=== PATIENT | female | born 1955 | race Caucasian/White ===

== ENCOUNTER 2018-07-09 13:37 | Outpatient (CLI) | payer OTHER ==
[2018-07-09] MEDS ORDERED: Iopamidol 370 76% 100 ML VIAL ONE (14:24)
== END 2018-07-09 13:38 | disposition home or self-care (01) ==
LOC: BICCT 13:37
PROVIDERS: ATTEND Internal Medicine Gastroenterology
DX: K59.00 Constipation, unspecified (principal); R10.31 Right lower quadrant pain; K43.9 Ventral hernia without obstruction or gangrene; Z86.010 Personal history of colon polyps
CPT/HCPCS: 74177; 82565

== ENCOUNTER 2018-07-09 17:40 | Observation (INO) | payer OTHER ==
[2018-07-09] MEDS ORDERED: Ondansetron HCl/PF 4 MG/2 ML Vial ONE (18:07)
[2018-07-09 18:17] LABS: Hemoglobin 16.3 g/dL (12.0-16.0); Mean Corpuscular HGB CONC 34.9 g/dL (32.0-36.0); Mean Corpuscular Hemoglobin 32.9 pg (27.0-31.0); Mean Corpuscular Volume 94.2 fL (78.0-98.0); Mean Platelet Volume 6.4 fL (7.4-10.4); Platelet Count 349 thou/uL (130-400); RBC Distribution Width 11.8 % (11.5-14.5); Red Blood Cell (RBC) Count 4.96 mill/uL (4.20-5.40); White Blood Cell (WBC) Count 10.7 thou/uL (4.8-10.8)
[2018-07-09 18:33] LABS: Eosinophils 5 % (0-10); Lymphocytes 40 % (21-51); MDiff Complete? YES; Monocytes 5 % (0-10); Neutrophil 49 % (42-75); PLT Morphology Comment Appears Adequate; RBC Morphology Normal
[2018-07-09 18:43] LABS: ALT (SGPT) 25 U/L (8-55); AST (SGOT) 32 U/L (5-34); Albumin 4.6 g/dL (3.4-4.8); Alkaline Phosphatase 82 U/L (40-150); Anion Gap 24 mmol/L (10-20); BUN (Urea Nitrogen) 9 mg/dL (9.8-20.1); Bilirubin, Total 0.6 mg/dL (0.2-1.2); Calc. Creatinine Clearance 0 mL/min (70-130); Calcium 10.3 mg/dL (7.8-10.44); Carbon Dioxide 21 mmol/L (23-31); Chloride 92 mmol/L (98-107); Estimated GFR-MDRD 53; Globulin 4.1 g/dL (2.4-3.5); Glucose 231 mg/dL (80-115); Lipase 24 U/L (8-78); Potassium 3.9 mmol/L (3.5-5.1); Protein, Total 8.7 g/dL (6.0-8.3); Sodium 133 mmol/L (136-145)
[2018-07-09 18:48] LABS: CKMB 0.7 ng/mL (0-6.6); Troponin I Less than 0.010 ng/mL (< 0.028)
--- NOTE | 2018-07-09 19:12 | RAD ---
ACUTE ABDOMINAL SERIES: 07/09/18 HISTORY: Chest pain and abdominal pain which has worsened over the past two hours. CHEST X-RAY: Compared to study on 03/09/13. The cardiac silhouette and pulmonary vasculature are within normal limits. Lungs are clear. Mild dege nerative changes seen in the spine with mild right convexed curvature of the thoracic spine. Minimal vascular calcifications seen in the thoracic aorta. No free intraperitoneal air is seen beneath the h emidiaphragms. UPRIGHT AND SUPINE VIEWS OF THE ABDOMEN: There is residual contrast seen within the colon as well as in the renal collecting systems and urina ry bladder related to recent contrasted exam. This does limit evaluation of the abdomen, but the mackenzie l gas pattern is overall nonspecific. Suspicious calcifications could be easily obscured by retention of contrast, no obvious suspicious calcifications are seen. Mild degenerative changes seen in the sp ine. There are postsurgical changes at the L4-5 level related to posterior fusion with intradiscal pr osthesis present. Postsurgical changes related to left total hip prosthesis are noted. IMPRESSION: 1. Nonspecific bowel gas pattern. 2. Contrast in the renal collecting systems, urinary bladder, as well as the colon related to re cent contrasted exam. POS: AROLDO
[2018-07-09 22:02] LABS: Lactic Acid 1.7 mmol/L (0.5-2.2)
[2018-07-09 23:11] LABS: Lactic Acid 1.6 mmol/L (0.5-2.2)
[2018-07-10 00:43] VITALS: BMI 35.9
[2018-07-10 06:02] LABS: #Basophils 0.1 thou/uL (0.0-0.2); #Eosinphils 0.3 thou/uL (0.0-0.7); #Lymphocytes 2.7 thou/uL (1.20-3.40); #Monocytes 0.9 thou/uL (0.11-0.59); %Basophils 1.6 % (0.0-1.0); %Eosinophils 2.9 % (0.0-10.0); %Lymphocytes 29.7 % (21.0-51.0); %Monocytes 9.6 % (0.0-10.0); %Neutrophils 56.1 % (42.0-75.0); Hemoglobin 14.2 g/dL (12.0-16.0); Mean Corpuscular Hemoglobin 32.4 pg (27.0-31.0); Mean Corpuscular Volume 95.4 fL (78.0-98.0); Mean Platelet Volume 6.1 fL (7.4-10.4); Platelet Count 314 thou/uL (130-400); RBC Distribution Width 11.8 % (11.5-14.5); Red Blood Cell (RBC) Count 4.39 mill/uL (4.20-5.40)
[2018-07-10 06:10] LABS: Lactic Acid 0.9 mmol/L (0.5-2.2)
[2018-07-10 06:14] LABS: ALT (SGPT) 19 U/L (8-55); AST (SGOT) 19 U/L (5-34); Albumin 3.8 g/dL (3.4-4.8); Alkaline Phosphatase 60 U/L (40-150); Anion Gap 9 mmol/L (10-20); BUN (Urea Nitrogen) 8 mg/dL (9.8-20.1); Bilirubin, Total 0.5 mg/dL (0.2-1.2); Calc. Creatinine Clearance 116 mL/min (70-130); Carbon Dioxide 31 mmol/L (23-31); Chloride 102 mmol/L (98-107); Estimated GFR-MDRD 83; Glucose 161 mg/dL (80-115); Potassium 3.7 mmol/L (3.5-5.1); Protein, Total 6.8 g/dL (6.0-8.3); Sodium 138 mmol/L (136-145)
[2018-07-10] MEDS: Sodium Chloride 0.45% 1,000 ML IV SCH ×2 (06:42)
[2018-07-10] MEDS ORDERED: Lactated Ringer's 1,000 ML IV SCH (08:00)
[2018-07-10] MEDS ORDERED: traMADol HCl 50 MG TAB PO PRN ×2 (11:02)
--- NOTE | 2018-07-10 11:13 | SS ---
CHIEF COMPLAINT: Incisional hernia. HISTORY OF PRESENT ILLNESS: This is a 63-year-old female who had left colectomy for chronic divertic ulitis by me in 2012. Her postop course was uneventful. She has now had similar kind of symptoms ov er the course of the last few weeks. She had seen Dr. Lucero. She was having some pain to the right of her umbilicus. He ordered a CAT scan as an outpatient which showed an incisional hernia. She the n proceeded to have more severe pain and vomited, seen in emergency room where her hernia was reduced . She was admitted overnight due to elevated lactate. Her lactate is normal now. This morning her pain is resolved. No nausea, vomiting. No abdominal distention. She is passing gas. PAST MEDICAL HISTORY: Diabetes mellitus type 2, hypertension. PAST SURGICAL HISTORY: As above. MEDICINES: Venlafaxine, unknown diabetic medicine. ALLERGIES: No known drug allergies. SOCIAL HISTORY: No smoking, alcohol or drugs. REVIEW OF SYSTEMS: Ten system review of systems otherwise negative unless described above. PHYSICAL EXAMINATION: HEENT: Sclerae are anicteric. Oropharynx clear. NECK: No lymphadenopathy. LUNGS: Clear. HEART: Regular rate and rhythm. ABDOMEN: Soft, minimally tender near the umbilicus, reducible incisional hernia. Well-healed midlin e incision. EXTREMITIES: No ischemia or edema to extremities. LABORATORY: White blood cell count is 9, hemoglobin 14, platelet count is 314. Sodium 138, potassiu m 3.7, creatinine 0.71. Lactate resolved at 0.9. ASSESSMENT: Incisional hernia. PLAN: I had a long discussion about treatment of incisional hernia. I would prefer a robotic incisi onal hernia repair with mesh. I think in her case, lower recurrence rate less postop pain; however, we are not going to be able to do that over the weekend, so my plan is to let her eat, get her home, bring her back in the next week or so for that repair. She understands and agrees with the plan.
[2018-07-10 15:46] VITALS: BP 153/84; TEMP 98.2
== END 2018-07-10 16:00 | disposition home or self-care (01) ==
LOC: ERS 17:40 → SURG B 21:09
PROVIDERS: ADMIT Specialist; ATTEND Specialist
DX: K43.2 Incisional hernia without obstruction or gangrene (principal); I10 Essential (primary) hypertension; E11.9 Type 2 diabetes mellitus without complications; Z79.899 Other long term (current) drug therapy
CPT/HCPCS: 36415; 36416; 74022; 74177; 80053; 82553; 82565; 83605; 83690; 84484; 85025; 96361; 96374; 96375; 96376; A4216; G0378; J2270; J2405

== ENCOUNTER 2018-07-15 11:23 | Day surgery (SDC) | payer OTHER ==
[2018-07-14 13:32] VITALS: BMI 35.4
[2018-07-15] MEDS ORDERED: Bupivacaine/Epinephrine 0.25% 30 ML VIAL ONE (12:32)
[2018-07-15] MEDS ORDERED: CEFAZOLIN/Water 2 GM/20 ML SYRINGE ONE (12:39)
[2018-07-15] MEDS ORDERED: Fentanyl 250 MCG/5 ML VIAL ONE (13:05)
[2018-07-15] MEDS ORDERED: Ondansetron HCl/PF 4 MG/2 ML Vial ONE (14:24)
[2018-07-15] MEDS ORDERED: Ketorolac Tromethamine 30 MG/ML VIAL ONE (14:24)
[2018-07-15] MEDS ORDERED: PHENYLEPHRINE-NS 100 MCG/ML 10 ML SYRINGE ONE (14:24)
[2018-07-15] MEDS ORDERED: Labetalol HCl 100 MG/20 ML VIAL ONE (14:24)
[2018-07-15] MEDS ORDERED: Esmolol 100 MG/10 ML VIAL ONE (14:24)
[2018-07-15] MEDS ORDERED: Glycopyrrolate 0.2 MG/ML 5 ML SYRINGE ONE (14:24)
[2018-07-15] MEDS ORDERED: PROPOFOL 200 MG/20 ML VIAL ONE (14:24)
[2018-07-15] MEDS ORDERED: Fentanyl 100 MCG/2 ML VIAL ONE ×3 (15:57→16:32)
[2018-07-15] MEDS ORDERED: HYDROcodone/Acetaminophen 5/325 mg Tablet ONE (17:35)
--- NOTE | 2018-07-16 15:12 | OP ---
DATE OF PROCEDURE: 07/15/2018 PREOPERATIVE DIAGNOSIS: Incisional hernia. POSTOPERATIVE DIAGNOSIS: Incisional hernia. PROCEDURE: Laparoscopic da Bianka robot incisional hernia repair with 2 pieces of mesh placed, [address] and 5 x [address] FINDINGS: Multiple fascial defects of the previous midline incision. TECHNIQUE: The patient was taken to the operating room and placed supine on the table. After genera l anesthetic was obtained, a Ley was placed. The abdomen is prepped and draped in a sterile fashio n. Left subcostal 5-mm Optiview trocar was placed in usual fashion. High-flow pneumoperitoneum was obtained. Left and right abdominal 8 mm robot ports were placed along the costal margin laterally on each side. A 5 mm subcostal port switched out to an 11 mm balloon trocar. All ports are docked to the robot. Surgeon goes to the console. Multiple adhesions were taken out from posterior abdominal wall. The patient is found to have intestine in the known defect just above the umbilicus. She also has multiple defects all the way up and down of the previous midline incision. All adhesions were t aken down. #1 V-Loc was brought into the abdomen and used to close the fascial defect primarily runn ing from the most distal aspects proximally. The fascial defects were all closed under minimal tensi on. A 4 x 10 cm piece of mesh was brought into the sterile field, placed in the abdominal cavity and used to cover the lower incision. This is sewn to the posterior peritoneum and fascia using a runni ng 2-0 V-Loc. A second piece was placed up top to cover the most superior aspect and sewn in place u sing a V-Loc as well. All needles were removed from the abdomen and accounted for. There was no dam age to any intraabdominal structures. There is no bleeding. All port sites were infiltrated using l ocal anesthetic. All ports were removed under camera visualization and pneumoperitoneum was let down . The incisions are closed using 4-0 Monocryl and Dermabond. The patient enroute to recovery room i n stable condition. All sponge counts, needle counts, lap counts were correct.
== END 2018-07-15 19:30 | disposition home or self-care (01) ==
LOC: SDC 11:23
PROVIDERS: ATTEND Surgery
PROC: 0WUF4JZ Supplement Abdominal Wall with Synthetic Substitute, Percutaneous Endoscopic Approach (ICD-10-PCS; principal; 2018-07-15)
DX: K43.2 Incisional hernia without obstruction or gangrene (principal); E11.9 Type 2 diabetes mellitus without complications; I10 Essential (primary) hypertension; Z79.899 Other long term (current) drug therapy
CPT/HCPCS: 96374; C1781; J0131; J1885; J2405; J2704; J3010

== ENCOUNTER 2018-09-29 15:25 | Outpatient (CLI) | payer OTHER | END 2018-09-29 15:26 | disposition home or self-care (01) | LOC: BICMAMMO 15:25 | PROVIDERS: ATTEND Student in an Organized Health Care Education/Training Program | DX: Z12.31 Encounter for screening mammogram for malignant neoplasm of breast (principal); Z80.3 Family history of malignant neoplasm of breast | CPT/HCPCS: 77063; 77067 ==

== ENCOUNTER 2019-03-10 12:38 | Inpatient (IN) | payer OTHER ==
[2019-03-10] MEDS ORDERED: Fentanyl 100 MCG/2 ML VIAL ONE ×4 (13:44→18:40)
[2019-03-10] MEDS ORDERED: Midazolam HCl 2 mg/2 ml Vial ONE (14:14)
[2019-03-10] MEDS ORDERED: Bupivacaine/Epinephrine 0.25% 30 ML VIAL ONE (14:21)
--- NOTE | 2019-03-10 14:25 | HP ---
HISTORY OF PRESENT ILLNESS: Ms. Regan is a 64-year-old morbidly obese woman, who was [facility] earlier today. The patient presented with insidious onset abdominal pain, which she states it started approximately 36 hours ago. The pain intensified last night and has localized to the right lower quadrant. Pain is described as sharp, associated with multiple episodes of nonbilious emesis. She admitted some chills this morning. She thought she might have fever, although she did not record her temperature. PAST MEDICAL HISTORY: Pertinent for chronic depression, morbid obesity, degenerative arthritic disease, previous ventral incisional hernia, and diverticulosis coli. PAST SURGICAL HISTORY: Significant for partial colectomy with primary anastomosis 4 years ago, she is status post ventral incisional herniorrhaphy in July of 2018. She also admits to left total hip arthroplasty as well as back surgery, she does not recall the levels. SOCIAL HISTORY: She is , lives at home with her . She admits to occasional intake of ethanol in moderate amounts. She denies any cigarette smoking or illicit drug abuse. FAMILY HISTORY: Noncontributory for this patient's age. PREHOSPITALIZATION MEDICATIONS: Includes, 1. Venlafaxine 150 mg p.o. q.a.m. 2. Aspirin 81 mg p.o. daily. 3. Multiple vitamins and some fish oil. ALLERGIES: THE PATIENT DENIES ANY KNOWN DRUG ALLERGIES. REVIEW OF SYSTEMS: Ten-point review of systems essentially unremarkable, except as stated in past medical history and chief complaint. PHYSICAL EXAMINATION: GENERAL: This reveals a 64-year-old normally developed woman, who is otherwise coherent, interactive, and appears stated age. The patient is alert and oriented x3. She appears to be in no acute distress at time of my evaluation. VITAL SIGNS: Include blood pressure is 198/102, pulse is 98, respiratory rate is 16, temperature is 98.3 degrees Fahrenheit, oxygen saturation is 94% on room air. HEENT: Reveals normocephalic and atraumatic. Pupils are equal, round, reactive to light and accommodation. His extraocular muscles are intact bilaterally. No scleral icterus is present. HEART: Reveals regular rate and rhythm. No murmurs or gallops auscultated. LUNGS: Clear to auscultation bilaterally. Breathing, regular and nonlabored. ABDOMEN: Soft and obese. She has right lower quadrant tenderness to palpation. She has a positive Rovsing sign. Liver and spleen otherwise nonpalpable below costal margin. NEUROLOGIC: Reveals no focal deficits present. LABORATORY STUDIES: Accompanying laboratory studies from [facility] includes a CBC with 14,600 white blood cells, hemoglobin and hematocrit 16.2 and 47.7 respectively. Platelet count is 278,000. Metabolic profile; sodium is 136, potassium of 4.3, chloride is 94, BUN is 12, creatinine is 0.5, glucose is 353. ALT and AST noted at 23 and 37 respectively. I have personally reviewed the accompanying CT scan of the abdomen and pelvis, which is remarkable for dilated fluid-filled appendix with periappendiceal fat-stranding and free intraperitoneal fluid. There is no pneumoperitoneum noted. IMPRESSIONS: 1. Acute appendicitis. 2. Morbid obesity. RECOMMENDATION: 1. Laparoscopic appendectomy. 2. I have advised the patient of the above findings and recommendations. 3. Also, I informed her of the risks and benefits of the proposed surgery to include, but not limited to bleeding, infection, injury to bowel or surrounding structures. I did tell the patient that given a previous history of a ventral incisional herniorrhaphy with mesh that she faces additional risk for infection, especially if the appendix had already ruptured. This information was given to the patient in the presence of her at bedside. They both indicated understanding of information given. I have answered their questions. The patient has granted consent for this admission and surgical intervention. Job ID: [id number]
[2019-03-10] MEDS ORDERED: HYDROmorphone 2 MG/ML VIAL ONE (16:06)
[2019-03-10] MEDS ORDERED: Glycopyrrolate 0.2 MG/ML 5 ML SYRINGE ONE (16:31)
[2019-03-10] MEDS ORDERED: Ondansetron PF 4 MG/2 ML Vial ONE (16:31)
[2019-03-10] MEDS ORDERED: ePHEDrine 50 MG/ML VIAL ONE (16:31)
[2019-03-10] MEDS ORDERED: PHENYLEPHRINE-NS 100 MCG/ML 10 ML SYRINGE ONE (16:31)
[2019-03-10] MEDS ORDERED: Rocuronium Bromide 10 MG/ML (10ML VIAL) ONE (16:31)
[2019-03-10] MEDS ORDERED: Lidocaine 1% PF 5 ML VIAL ONE (16:31)
[2019-03-10] MEDS ORDERED: PROPOFOL 200 MG/20 ML VIAL ONE (16:31)
[2019-03-10] MEDS ORDERED: Succinylcholine Chloride 20 MG/ML 10 ml SYRINGE FS ONE (16:31)
[2019-03-10] MEDS ORDERED: Dexamethasone 20 MG/5 ML VIAL ONE (16:31)
[2019-03-10] MEDS ORDERED: Labetalol HCl 100 MG/20 ML VIAL ONE (17:19)
[2019-03-10] MEDS ORDERED: Ketorolac Tromethamine 30 MG/ML VIAL IVP PRN (17:26)
[2019-03-10] MEDS ORDERED: Ondansetron HCl/PF 4 MG/2 ML Vial IVP PRN (17:26)
[2019-03-10] MEDS ORDERED: Promethazine HCl 25 MG/ML VIAL IM PRN ×2 (17:26→17:58)
[2019-03-10] MEDS ORDERED: Dextrose 50% Abboject 50 ML SYRINGE SLOW IVP PRN (17:53)
[2019-03-10] MEDS ORDERED: Dextrose 5% in Water 1,000 ML IV PRN (17:53)
[2019-03-10] MEDS ORDERED: HumaLOG 300 UNITS/3 ML VIAL SC PRN (17:53)
[2019-03-10] MEDS ORDERED: HYDROmorphone 10 mg/100 ml CADD IVPB PRN (17:58)
[2019-03-10] MEDS ORDERED: Ondansetron PF 4 MG/2 ML Vial IVP PRN (17:58)
[2019-03-10] MEDS ORDERED: diphenhydrAMINE 50 MG/ML VIAL IM PRN (17:58)
[2019-03-10] MEDS ORDERED: diphenhydrAMINE 50 MG/ML VIAL IVP PRN (17:58)
[2019-03-10] MEDS ORDERED: diphenhydrAMINE 25 MG CAP PO PRN (17:58)
[2019-03-10] MEDS ORDERED: Naloxone HCl 0.4 mg/ml Vial IV PRN (17:58)
[2019-03-10] MEDS ORDERED: Acetaminophen 1,000 MG in Premix Bag 1 BAG IVPB SCH (18:00)
[2019-03-10] MEDS ORDERED: Piperacillin/Tazobactam 3.375 GM in Sodium Chloride 0.9% 100 ML IVPB SCH (18:00)
[2019-03-10] MEDS ORDERED: Ketorolac Tromethamine 30 MG/ML VIAL IVP SCH (18:00)
[2019-03-10] MEDS ORDERED: Communication Order-Pharmacy FS SCH (18:00)
[2019-03-10] MEDS ORDERED: Cepastat Lozenges 1 LOZ PO PRN (20:45)
[2019-03-10] MEDS: Enoxaparin Sodium 40 MG/0.4 ML SYRINGE SC SCH (21:02)
[2019-03-10] MEDS: Acetaminophen 1,000 MG in Premix Bag 1 BAG IVPB SCH (21:02)
[2019-03-10] MEDS: Piperacillin/Tazobactam 3.375 GM in Sodium Chloride 0.9% 100 ML IVPB SCH (21:02)
[2019-03-10] MEDS: Ketorolac Tromethamine 30 MG/ML VIAL IVP SCH (21:03)
[2019-03-10] MEDS: Sodium Chloride 0.9% 1,000 ML IV SCH (21:04)
[2019-03-10 23:28] VITALS: BMI 37.7
--- NOTE | 2019-03-11 00:10 | OP ---
DATE OF PROCEDURE: 03/10/2019 PREOPERATIVE DIAGNOSIS: Acute appendicitis. POSTOPERATIVE DIAGNOSES: 1. Acute appendicitis. 2. Extensive intraabdominal adhesions. PROCEDURES PERFORMED: 1. Attempted laparoscopic appendectomy. 2. Exploratory laparotomy. 3. Adhesiolysis. 4. Appendectomy. ANESTHESIA: General endotracheal. ESTIMATED BLOOD LOSS: 200 mL. FLUIDS GIVEN: 1200 mL crystalloids. COUNTS: Sponge and instrument counts were verified as correct x2. COMPLICATIONS: None apparent to operation. INDICATIONS FOR OPERATION: A 64-year-old woman, presented with 36-hour history of abdominal pain. Clinical radiographic examination was consistent with acute appendicitis and complex subcutaneous fluid collection consistent with seroma. The patient was brought to the operating room for laparoscopic appendectomy. Findings are consistent with extensive intraabdominal adhesions, as well as suppurative but nonperforated retrocecal appendix. DESCRIPTION OF PROCEDURE: Informed consent was obtained from the patient. She was brought to the operating room and placed in supine position. Following general anesthesia, the abdomen was sterilely prepped and draped in usual fashion. The skin in the right lower quadrant was anesthetized with 1% lidocaine. A small incision was made using #11 scalpel. Veress needle was inserted through this, placed in the peritoneal cavity through which the abdomen was insufflated with 3 L of CO2 gas. Intraabdominal pressure was noted at 2 mmHg. Following abdominal insufflation, Veress needle was removed and a 5 mm trocar was introduced using a Visiport under laparoscopy. Laparoscopy confirmed proper placement of the port. No injuries to underlying structures. Additional laparoscopy revealed extensive intraabdominal adhesions involving the anterior abdominal wall from the pelvis, completely obscuring the right lower quadrant. The adhesions involved multiple loops of small bowel, which were completely welded to the anterior abdominal wall. We decided to proceed with laparotomy. , a midline incision was made through the previous incisional scar using #10 scalpel. Incision was carried through the subcutaneous tissues, maintaining hemostasis using cautery. The fascia was incised in midline using a fresh scalpel and peritoneal cavity was gently entered, immediately encountering multiple loops of small bowel adhered to the anterior abdominal wall. The small bowel adhesions were meticulously taken down using Metzenbaum scissors. Once small bowel was freed completely from the anterior abdominal wall, was then able to run the small bowel from the ligament of Treitz down to terminal ileum. A suppurative enlarged retrocecal appendix was noted. This was grasped with a [place] and elevated. I created a rent through the mesoappendix at the base using a right angle forceps. The appendix was divided at the appendico-cecal junction between clamps and ligated with a stick tie of 3-0 silk. The mesoappendix was also serially divided between clamps and ligated with free tie of 0 Vicryl. The appendix was passed off the operative field, followed by transmission to pathology. The appendiceal stump was imbricated using a pursestring suture of 3-0 silk. Operative site was copiously irrigated clear with saline solution. Small bowel was returned to normal anatomic location. Fascia was approximated in the midline using a running stitch of #1 single stranded PDS after all sponges and instruments were removed and accounted for x2. Subcutaneous tissue was irrigated clear with saline solution, perfected hemostasis using thermal cautery. The palpable bulge to the right of midline adjacent to the umbilicus was noted, and this was the site of the subcutaneous seroma. I attempted to aspirate this with a 19-gauge needle. The fluid was quite viscous. I then opened this using cautery, evacuating large amount of thick seroma. Subcutaneous tissues were approximated using interrupted sutures of 2-0 Vicryl. Skin incisions were closed using lian. Sterile dressing was applied. The patient tolerated the operation without any apparent complication and was returned to recovery room in satisfactory condition. Job ID: [id number]
[2019-03-11] MEDS: Acetaminophen 1,000 MG in Premix Bag 1 BAG IVPB SCH ×2 (03:46→08:04)
[2019-03-11] MEDS: Piperacillin/Tazobactam 3.375 GM in Sodium Chloride 0.9% 100 ML IVPB SCH ×4 (03:46→21:14)
[2019-03-11] MEDS: Ketorolac Tromethamine 30 MG/ML VIAL IVP SCH ×2 (03:46→08:04)
[2019-03-11] MEDS: Sodium Chloride 0.9% 1,000 ML IV SCH ×2 (04:09→14:40)
[2019-03-11 05:24] LABS: #Lymphocytes 1.4 thou/uL (1.20-3.40); #Monocytes 1.5 thou/uL (0.11-0.59); #Neutrophils 15.9 thou/uL (1.40-6.50); %Basophils 0.1 % (0.0-1.0); %Eosinophils 0.1 % (0.0-10.0); %Lymphocytes 7.7 % (21.0-51.0); %Monocytes 7.7 % (0.0-10.0); %Neutrophils 84.4 % (42.0-75.0); Mean Corpuscular HGB CONC 33.2 g/dL (32.0-36.0); Mean Corpuscular Hemoglobin 32.1 pg (27.0-31.0); Mean Corpuscular Volume 96.7 fL (78.0-98.0); Mean Platelet Volume 6.7 fL (7.4-10.4); Platelet Count 290 thou/uL (130-400); Red Blood Cell (RBC) Count 4.04 mill/uL (4.20-5.40); White Blood Cell (WBC) Count 18.8 thou/uL (4.8-10.8)
[2019-03-11 05:43] LABS: Anion Gap 16 mmol/L (10-20); BUN (Urea Nitrogen) 14 mg/dL (9.8-20.1); Calc. Creatinine Clearance 94 mL/min (70-130); Calcium 8.8 mg/dL (7.8-10.44); Carbon Dioxide 24 mmol/L (23-31); Chloride 101 mmol/L (98-107); Estimated GFR-MDRD 61; Glucose 342 mg/dL (80-115); Potassium 4.4 mmol/L (3.5-5.1); Sodium 137 mmol/L (136-145)
[2019-03-11] MEDS: HumaLOG 300 UNITS/3 ML VIAL SC PRN ×2 (08:11→12:15)
[2019-03-11] MEDS ORDERED: traMADol HCl 50 MG TAB PO PRN ×3 (09:53→12:00)
[2019-03-11] MEDS ORDERED: Ibuprofen 600 MG TAB PO SCH (10:00)
[2019-03-11] MEDS ORDERED: traMADol HCl 50 MG TAB PO SCH (10:00)
[2019-03-11] MEDS: Ibuprofen 600 MG TAB PO SCH ×2 (12:14→21:13)
[2019-03-11] MEDS: traMADol HCl 50 MG TAB PO SCH ×2 (12:14→17:35)
[2019-03-11] MEDS ORDERED: hydrOXYzine 25 MG TAB PO PRN (14:22)
[2019-03-11] MEDS: Acetaminophen 500 MG TAB PO SCH ×2 (14:36→21:13)
[2019-03-11] MEDS: Fish Oil 1,000 MG CAP PO SCH ×2 (14:36→21:14)
[2019-03-11] MEDS ORDERED: Venlafaxine HCl XR 150 MG CAP PO SCH (15:00)
--- NOTE | 2019-03-11 15:32 | PRG ---
DATE OF SERVICE: 03/11/2019 SUBJECTIVE: The patient is hospital day 2, postop day 1, status post acute appendicitis, which yesterday she was planned for a laparoscopic appendectomy, but due to a significant amount of lesions, it was converted to an open. Overnight, her pain was controlled with a Dilaudid SECURITY RISK ANALYST. She was also kept n.p.o. with an NG tube in. This morning, the NG tube was discontinued as was her Dilaudid SECURITY RISK ANALYST. She will be converted to p.o. pain medication and placed on a clear liquid diet. OBJECTIVE: VITAL SIGNS: Temperature is 97.9, heart rate 92, blood pressure 134/86, respirations 18, oxygen saturations 97% on room air. GENERAL: The patient is resting comfortably in bed. She has no complaints other than she would like her NG tube out. HEENT: Unremarkable. LUNGS: Clear to auscultation with good inspiratory and expiratory effort. HEART: Regular rate and rhythm. ABDOMEN: Soft with minimal tenderness. The patient's postop dressing is clean, dry, and intact. EXTREMITIES: Neurovascularly intact x4. LABORATORY FINDINGS: White blood cell count 18.8, hemoglobin 13.0, hematocrit 39.1, and platelets 290. Sodium 137, potassium 4.4, chloride 101, CO2 of 24, BUN 14, creatinine 0.93, glucose 342. There are no radiographs reviewed this morning. ASSESSMENT: Status post laparoscopic appendectomy converted to open with lysis of adhesions. PLAN: Plan again will be to discontinue NG tube, discontinue Dilaudid. Clear liquid diet, p.o. pain medication, encourage ambulation, and likely discharge the patient within the next 24 to 48 hours once her bowel function is returned and her pain is controlled adequately on p.o. pain medications. The patient has also been placed on an aggressive sliding scale insulin for her hyperglycemia. The patient was evaluated this morning with Dr. Hagen. Job ID: [id number]
[2019-03-11] MEDS: Insulin Regular 300 UNITS/3 ML VIAL SC PRN (18:17)
[2019-03-11] MEDS: Enoxaparin Sodium 40 MG/0.4 ML SYRINGE SC SCH (21:14)
[2019-03-12] MEDS: traMADol HCl 50 MG TAB PO SCH ×3 (00:16→12:19)
[2019-03-12] MEDS: Sodium Chloride 0.9% 1,000 ML IV SCH ×3 (00:19→10:01)
[2019-03-12] MEDS: Piperacillin/Tazobactam 3.375 GM in Sodium Chloride 0.9% 100 ML IVPB SCH ×3 (02:56→15:36)
[2019-03-12] MEDS: Acetaminophen 500 MG TAB PO SCH ×3 (02:56→15:36)
[2019-03-12] MEDS: Ibuprofen 600 MG TAB PO SCH ×2 (04:20→12:19)
[2019-03-12] MEDS: Insulin Regular 300 UNITS/3 ML VIAL SC PRN ×2 (06:21→12:20)
[2019-03-12 07:50] LABS: Hemoglobin 11.1 g/dL (12.0-16.0); Mean Corpuscular HGB CONC 32.2 g/dL (32.0-36.0); Mean Corpuscular Hemoglobin 31.5 pg (27.0-31.0); Mean Corpuscular Volume 97.9 fL (78.0-98.0); Mean Platelet Volume 6.6 fL (7.4-10.4); Platelet Count 227 thou/uL (130-400); RBC Distribution Width 11.9 % (11.5-14.5); Red Blood Cell (RBC) Count 3.53 mill/uL (4.20-5.40); White Blood Cell (WBC) Count 11.1 thou/uL (4.8-10.8)
[2019-03-12 08:03] LABS: Anion Gap 10 mmol/L (10-20); BUN (Urea Nitrogen) 11 mg/dL (9.8-20.1); Calc. Creatinine Clearance 135 mL/min (70-130); Calcium 8.4 mg/dL (7.8-10.44); Carbon Dioxide 27 mmol/L (23-31); Chloride 105 mmol/L (98-107); Estimated GFR-MDRD Greater than 90; Glucose 192 mg/dL (80-115); Magnesium 1.5 mg/dL (1.6-2.6); Potassium 3.3 mmol/L (3.5-5.1); Sodium 139 mmol/L (136-145)
[2019-03-12 08:06] LABS: Phosphorus 1.8 mg/dL (2.3-4.7)
[2019-03-12] MEDS: Fish Oil 1,000 MG CAP PO SCH ×2 (08:39→15:36)
[2019-03-12 08:45] LABS: Band 1 % (5-11); Eosinophils 2 % (0-10); Lymphocytes 12 % (21-51); MDiff Complete? YES; Monocytes 7 % (0-10); Neutrophil 78 % (42-75); RBC Morphology Normal
[2019-03-12] MEDS ORDERED: Magnesium 2 GM/50 ML 4 GM in Premix Bag 1 BAG IVPB SCH (08:45)
[2019-03-12] MEDS ORDERED: Potassium Phosphate 30 MMOL, Magnesium Sulfate 4 GM in Sodium Chloride 0.9% 500 ML IVPB SCH (08:45)
[2019-03-12] MEDS ORDERED: Docusate 100 MG CAP PO SCH (09:00)
[2019-03-12] MEDS ORDERED: Aspirin 81 mg Enteric Coated Tablet PO SCH (09:00)
[2019-03-12] MEDS ORDERED: Polyethylene Glycol 3350 17 GM Packet PO SCH (09:00)
[2019-03-12] MEDS ORDERED: Venlafaxine HCl XR 150 MG CAP PO SCH (09:00)
[2019-03-12] MEDS ORDERED: Loratadine 10 MG TAB PO SCH (09:00)
[2019-03-12] MEDS ORDERED: Multivitamin W/ Minerals 1 TAB PO SCH (09:00)
--- NOTE | 2019-03-12 15:28 | PRG ---
DATE OF SERVICE: 03/12/2019 SUBJECTIVE: Ms. Regan is postop day #2, status post exploratory laparotomy and appendectomy for suppurative appendix, complicated by multiple intraabdominal adhesions. The patient is awake and alert today. She reports adequate pain control. She tolerated clear liquid diet. She is passing flatus, but has not had any bowel movement. OBJECTIVE: VITAL SIGNS: Today include blood pressure 121/77, pulse is 84, respiratory rate is 16, temperature is 98.5 degrees Fahrenheit, oxygen saturation is 96% on room air. HEENT: Reveals normocephalic and atraumatic. HEART: Reveals regular rate and rhythm. No murmurs or gallops auscultated. LUNGS: Clear to auscultation bilaterally. Her breathing is regular and nonlabored. ABDOMEN: Soft and nondistended. Incision is intact with minimum serosanguineous drainage in the midportion of the midline wound. She clearly has no peritoneal signs on examination. NEUROLOGIC: Reveals no focal deficits present. LABORATORY FINDINGS: Include a CBC with 11,100 white blood cells, hemoglobin and hematocrit are 11.1 and 34.5 respectively. Platelet count is 227,000. Metabolic profile; sodium 139, potassium is 3.3, chloride is 105, bicarb is 27, BUN 11, creatinine 0.65, glucose 192, magnesium 1.5, and phosphorus is 1.8. IMPRESSIONS: 1. Postop day #2, status post exploratory laparotomy and appendectomy for suppurative acute appendicitis. 2. Acute hypokalemia. 3. Acute hypomagnesemia. 4. Acute hypophosphatemia. PLAN: 1. Correct abnormal electrolytes. 2. Increase diet and activity. 3. Anticipate discharge within next 24 hours with adequate return of bowel function. Job ID: [id number]
[2019-03-12 16:36] VITALS: BP 138/82; TEMP 98.2
[2019-03-12] MEDS ORDERED: Amoxicillin/Potassium Clav 875 MG TAB PO SCH (21:00)
--- NOTE | 2019-03-13 01:59 | DIS ---
DATE OF ADMISSION: 03/10/2019 DATE OF DISCHARGE: 03/12/2019 ADMITTING DIAGNOSIS: Acute appendicitis. DISCHARGE DIAGNOSIS: Acute appendicitis. PROCEDURES PERFORMED: Exploratory laparotomy and appendectomy on 03/10/2019 by Xiao. Please see a separate dictation for the operative report. HISTORY AND HOSPITAL COURSE: This is a 64-year-old woman presented with acute abdominal pain. Clinical and radiographic examination were consistent with acute appendicitis for which the patient underwent exploratory laparotomy, lysis of adhesions, and appendectomy. Following surgery, the patient was admitted to surgical floor, where she remained at the time of discharge. Her hospitalization has been essentially uneventful. She has remained hemodynamically stable and afebrile. Postop day #2, the patient is ambulating without any difficulty. She is tolerating clear liquid diet, passing flatus, but not having any bowel movement. Pain is adequately controlled on oral analgesics. Incisional wound remains intact, clean, and dry. Clearly, the patient had no peritoneal signs on examination today. DISCHARGE INSTRUCTIONS: She will be discharged home today with the following instructions. 1. She follows up with me in [facility] in 2 weeks. 2. She is to avoid weight lifting in excess of 20 pounds until she has been released by me. She may shower in the next 48 hours if the wound is not draining. 3. She may take Tylenol 1000 mg p.o. q.6 hours alternating this with ibuprofen 600 mg p.o. q.8 hours for pain. 4. Additionally, she is given a prescription for tramadol 50 mg #30, 1-2 p.o. q.6 hours p.r.n. pain. 5. She is given also a prescription for Augmentin 875 mg p.o. t.i.d. #6 with no refills. 6. She is to call me with any questions or problems including intolerance to oral intake, exacerbation of abdominal pain, fever in excess of 101 degrees Fahrenheit. 7. The patient indicates understanding information given. Encouraged her to ambulate daily and vigorously to avoid complications of venous thromboembolism. She may resume pre-hospital medications as prescribed by her primary care physicians. 8. The patient has indicated understanding of the information given. I have answered her questions. 9. She has expressed gratitude for the care rendered to her during this hospitalization and surgery. Job ID: [id number]
== END 2019-03-12 17:26 | disposition home or self-care (01) | DRG 337 ==
LOC: SDC 12:38 → SURG A 17:53
PROVIDERS: ADMIT Surgery; ATTEND Surgery
PROC: 0DN80ZZ Release Small Intestine, Open Approach (ICD-10-PCS; principal; 2019-03-10)
PROC: 0DTJ0ZZ Resection of Appendix, Open Approach (ICD-10-PCS; 2019-03-10)
PROC: 0WJG4ZZ Inspection of Peritoneal Cavity, Percutaneous Endoscopic Approach (ICD-10-PCS; 2019-03-10)
DX: K35.80 Unspecified acute appendicitis (principal); F32.9 Major depressive disorder, single episode, unspecified; E66.01 Morbid (severe) obesity due to excess calories; K66.0 Peritoneal adhesions (postprocedural) (postinfection); E87.6 Hypokalemia; E83.42 Hypomagnesemia; E83.39 Other disorders of phosphorus metabolism; Z96.642 Presence of left artificial hip joint; Z79.82 Long term (current) use of aspirin; Z68.37 Body mass index [BMI] 37.0-37.9, adult
CPT/HCPCS: 36415; 36416; 80048; 83735; 84100; 85007; 85025; 85027; 88304; J0131; J1100; J1170; J1200; J1650; J1815; J1885; J2001; J2250; J2405; J2543; J2704; J3010; J3475; J3490; J7050

== ENCOUNTER 2019-03-23 15:49 | Inpatient (IN) | payer OTHER ==
[~2019-03-23 15:49] MED LIST: Heparin 1,000 UNITS/ML VIAL ONE
[2019-03-23] MEDS ORDERED: Dextrose 50% Abboject 50 ML SYRINGE SLOW IVP PRN (16:27)
[2019-03-23] MEDS ORDERED: Promethazine HCl 25 MG/ML VIAL IM PRN (16:27)
[2019-03-23] MEDS ORDERED: hydrALAZINE 20 MG/ML VIAL SLOW IVP PRN (16:27)
[2019-03-23] MEDS ORDERED: Ondansetron PF 4 MG/2 ML Vial IVP PRN (16:27)
[2019-03-23] MEDS ORDERED: Dextrose 5% in Water 1,000 ML IV PRN (16:27)
[2019-03-23] MEDS ORDERED: Morphine 4 MG/ML VIAL SLOW IVP SCH (16:30)
[2019-03-23] MEDS ORDERED: Acetaminophen 325 MG TAB PO SCH (16:45)
[2019-03-23] MEDS ORDERED: HYDROcodone/Acetaminophen 5/325 mg Tablet PO SCH (16:45)
[2019-03-23 17:03] LABS: Mean Corpuscular HGB CONC 33.8 g/dL (32.0-36.0); Mean Corpuscular Hemoglobin 31.4 pg (27.0-31.0); Platelet Count 501 thou/uL (130-400); RBC Distribution Width 11.5 % (11.5-14.5); Red Blood Cell (RBC) Count 4.13 mill/uL (4.20-5.40); White Blood Cell (WBC) Count 9.9 thou/uL (4.8-10.8)
[2019-03-23 17:32] LABS: Anion Gap 13 mmol/L (10-20); BUN (Urea Nitrogen) 8 mg/dL (9.8-20.1); Calc. Creatinine Clearance 0 mL/min (70-130); Calcium 9.5 mg/dL (7.8-10.44); Carbon Dioxide 29 mmol/L (23-31); Chloride 98 mmol/L (98-107); Estimated GFR-MDRD 87; Glucose 156 mg/dL (80-115); Magnesium 1.6 mg/dL (1.6-2.6); Phosphorus 2.5 mg/dL (2.3-4.7); Potassium 3.7 mmol/L (3.5-5.1); Sodium 136 mmol/L (136-145)
[2019-03-23 17:44] LABS: Band 4 % (5-11); Eosinophils 3 % (0-10); Lymphocytes 32 % (21-51); MDiff Complete? YES; Monocytes 2 % (0-10); Neutrophil 58 % (42-75); Platelet Morphology Comment Appears Increased; RBC Morphology Normal
--- NOTE | 2019-03-23 18:07 | HP ---
SURGEON: Dr. Hagen. CONSULTING PHYSICIAN: None. HISTORY OF PRESENT ILLNESS: The patient is a 64-year-old female with a history of diabetes, who presented to our followup clinic today. She had an ex-lap on March 10 and is postoperative day 13 status post laparoscopic appendectomy converted to an exploratory laparotomy with adhesional lysis. On evaluation, the patient had purulent discharge from the most inferior portion of the midline abdominal wound. Lian were taken out and wound was explored. The patient reported drainage from that area for about a week. She states that she was having regular bowel movements, tolerating a diet. Pain was well controlled with Tylenol, ibuprofen, and tramadol when taken appropriately. She denies fevers, chills, nausea, vomiting, or diarrhea. The wound was opened up in the clinic and subsequently the patient was admitted under observation and will go to the OR tomorrow for further wound exploration. REVIEW OF SYSTEMS: All additional 10-point review of systems negative except as indicated above. PAST MEDICAL HISTORY: Chronic depression, morbid obesity, degenerative arthritic disease, previous ventral incisional hernia, diverticulosis, diabetes, noncompliant. PAST SURGICAL HISTORY: Colectomy with primary anastomosis 4 years ago, status post ventral incisional hernia repair in July 2018, laparoscopic cholecystectomy converted to exploratory laparotomy with adhesiolysis and appendectomy. SOCIAL HISTORY: The patient is and lives at home with her . She drinks alcohol in moderate amount on occasions. She denies tobacco use or illicit drug use. MEDICATIONS: 1. Venlafaxine. 2. Aspirin. 3. Multivitamins. 4. Tylenol. 5. Ibuprofen. 6. Tramadol. ALLERGIES: NO KNOWN DRUG ALLERGIES. PHYSICAL EXAMINATION: VITAL SIGNS: Temperature 98.8, pulse 72, respirations 18, oxygen saturation 100 % on room air, blood pressure 132/89. GENERAL: Well-appearing middle-aged female, sitting up in bed with no signs of acute distress. PULMONARY: Equal chest rise and fall. Clear breath sounds bilaterally. No signs of acute respiratory distress: HEENT: No signs of injury or deformity. CARDIAC: Regular rate and rhythm. No murmurs, gallops, or rubs. GASTROINTESTINAL: Abdomen is soft, mildly tender to palpation. Midline abdominal wound with lian removed. Mildly erythematous purulent drainage from most inferior portion of the midline abdominal wound. PELVIS: Stable to palpation, nontender. EXTREMITIES: 2+ pulses in all extremities. No significant swelling noted. Gross motor and sensation intact. NEUROLOGIC: GCS is 15. Gross motor and sensation intact. Pupils equal, round, reactive to light. Alert and oriented x3. LABORATORY FINDINGS: Laboratory findings are pending and will be followed up. DIAGNOSTIC FINDINGS: None. ASSESSMENT: 1. Postop day 13, status post laparoscopic appendectomy converted to exploratory laparotomy with adhesional lysis and appendectomy. 2. Midline abdominal wound infection. PLAN: The patient will be admitted to the surgical floor. She is to go to the OR tomorrow with Dr. Hagen for I and D of that midline abdominal wound. In the meantime, the wound has been packed with a wet-to-dry dressing by Dr. Hagen and myself. She will be n.p.o. after midnight. She has a diabetic diet with insulin sliding scale. She will be on vancomycin and Zosyn IV. Normal saline at 100 an hour. She will have p.o. Tylenol, [place], ibuprofen, and p.r.n. morphine for pain. Pepcid IV for gastric ulcer prophylaxis, subcu Lovenox for DVT prophylaxis. She will work with Physical and Occupational Therapy postoperatively. Case Management has been consulted for home health as the patient will need help managing wound at discharge. The patient was seen and examined by Dr. Hagen and myself this afternoon in the clinic and while the patient admitted. Job ID: [id number] [facility]
[2019-03-23] MEDS: Piperacillin/Tazobactam 3.375 GM in Sodium Chloride 0.9% 100 ML IVPB SCH ×2 (18:42→23:40)
[2019-03-23] MEDS: Sodium Chloride 0.9% 1,000 ML IV SCH (18:42)
[2019-03-23 19:34] VITALS: BMI 36.6
[2019-03-23] MEDS ORDERED: Magnesium 2 GM/50 ML 2 GM in Premix Bag 1 BAG IVPB SCH (20:30)
[2019-03-23] MEDS ORDERED: Potassium Phosphate 15 MMOL in Sodium Chloride 0.9% 250 ML 250 ML IVPB SCH (20:45)
[2019-03-23] MEDS: Vancomycin HCl 1.5 GM in Sodium Chloride 0.9% 250 ML 300 ML IVPB SCH (21:18)
[2019-03-23] MEDS: Enoxaparin Sodium 40 MG/0.4 ML SYRINGE SC SCH (21:18)
[2019-03-23] MEDS: Famotidine/PF 20 mg/2ml Vial SLOW IVP SCH (21:19)
[2019-03-23] MEDS: Senokot S 8.6-50 MG TAB PO SCH (21:19)
[2019-03-23] MEDS: Ibuprofen 600 MG TAB PO SCH (21:19)
[2019-03-23] MEDS: Acetaminophen 325 MG TAB PO SCH (23:41)
[2019-03-23] MEDS: HYDROcodone/Acetaminophen 5/325 mg Tablet PO SCH (23:41)
[2019-03-24 05:10] LABS: Band 3 % (5-11); Eosinophils 2 % (0-10); Hemoglobin 11.7 g/dL (12.0-16.0); Lymphocytes 37 % (21-51); MDiff Complete? YES; Mean Corpuscular HGB CONC 33.1 g/dL (32.0-36.0); Mean Corpuscular Volume 93.7 fL (78.0-98.0); Mean Platelet Volume 5.9 fL (7.4-10.4); Monocytes 15 % (0-10); Neutrophil 43 % (42-75); Platelet Count 468 thou/uL (130-400); Platelet Morphology Comment Appears Increased; RBC Distribution Width 11.5 % (11.5-14.5); Red Blood Cell (RBC) Count 3.79 mill/uL (4.20-5.40); White Blood Cell (WBC) Count 8.9 thou/uL (4.8-10.8)
[2019-03-24] MEDS: Piperacillin/Tazobactam 3.375 GM in Sodium Chloride 0.9% 100 ML IVPB SCH ×4 (05:21→23:13)
[2019-03-24] MEDS: Ibuprofen 600 MG TAB PO SCH ×3 (05:21→21:23)
[2019-03-24 05:22] LABS: Anion Gap 14 mmol/L (10-20); BUN (Urea Nitrogen) 8 mg/dL (9.8-20.1); Calc. Creatinine Clearance 120 mL/min (70-130); Carbon Dioxide 30 mmol/L (23-31); Chloride 98 mmol/L (98-107); Estimated GFR-MDRD 87; Glucose 133 mg/dL (80-115); Magnesium 2.2 mg/dL (1.6-2.6); Potassium 3.7 mmol/L (3.5-5.1); Sodium 138 mmol/L (136-145)
[2019-03-24] MEDS: HYDROcodone/Acetaminophen 5/325 mg Tablet PO SCH ×4 (05:22→23:14)
[2019-03-24] MEDS: Acetaminophen 325 MG TAB PO SCH ×4 (05:22→23:15)
[2019-03-24] MEDS: Sodium Chloride 0.9% 1,000 ML IV SCH ×3 (05:23→20:04)
[2019-03-24] MEDS ORDERED: Fentanyl 250 MCG/5 ML VIAL ONE (09:48)
[2019-03-24] MEDS ORDERED: Sodium Chloride 0.9% 100 ML ONE (10:15)
[2019-03-24] MEDS ORDERED: Piperacillin/Tazobactam 3.375 GM VIAL ONE (10:15)
[2019-03-24] MEDS ORDERED: Promethazine HCl 25 MG/ML VIAL SLOW IVP PRN (11:24)
[2019-03-24] MEDS ORDERED: Promethazine HCl 25 MG/ML VIAL IM PRN (11:24)
[2019-03-24] MEDS ORDERED: Ondansetron HCl/PF 4 MG/2 ML Vial IVP PRN (11:24)
[2019-03-24] MEDS ORDERED: Fentanyl 100 MCG/2 ML VIAL ONE (11:37)
--- NOTE | 2019-03-24 12:08 | OP ---
DATE OF PROCEDURE: 03/24/2019 PREOPERATIVE DIAGNOSIS: Abdominal wound infection. POSTOPERATIVE DIAGNOSIS: Abdominal wound infection. PROCEDURE PERFORMED: Incision and drainage of abdominal wound. ANESTHESIA: General. ESTIMATED BLOOD LOSS: Negligible. COUNTS: Sponge and instrument counts were verified as correct x2. COMPLICATIONS: None apparent. INDICATIONS FOR OPERATION: A 64-year-old woman with previous recent history of laparoscopic converted to open cholecystectomy. The patient developed drainage from the incisional wound. Clinical examination was consistent with acute abdominal wound infection for which this patient was brought to the operating room for incision and drainage. Findings are consistent with a drainage of abdominal incisional wound. DESCRIPTION OF PROCEDURE: Informed consent obtained from the patient. She was brought to the operating room and placed in supine position. Following general anesthesia, the abdomen was sterilely prepped and draped in usual fashion. The previous incisional wound was opened and the fascia was intact above the umbilicus. Below the umbilicus. Nevertheless, the fascia was disrupted. Necrotic tissues were sharply excised using Metzenbaum scissors. Good hemostasis was in place. The wound bed was copiously irrigated with 6 L of sterile saline. The wound was packed using saline saturated gauze. The patient tolerated the procedure without any apparent complication and was returned to recovery room in satisfactory condition. Job ID: [id number]
[2019-03-24] MEDS: Vancomycin HCl 1.5 GM in Sodium Chloride 0.9% 250 ML 300 ML IVPB SCH ×2 (14:35→20:04)
[2019-03-24] MEDS: Famotidine/PF 20 mg/2ml Vial SLOW IVP SCH ×2 (14:35→20:14)
[2019-03-24] MEDS: Senokot S 8.6-50 MG TAB PO SCH ×2 (14:35→20:05)
[2019-03-24] MEDS: Polyethylene Glycol 3350 17 GM Packet PO SCH (14:35)
[2019-03-24] MEDS ORDERED: ePHEDrine 50 MG/ML VIAL ONE (15:23)
[2019-03-24] MEDS ORDERED: Lidocaine 1% PF 5 ML VIAL ONE (15:23)
[2019-03-24] MEDS ORDERED: PROPOFOL 200 MG/20 ML VIAL ONE (15:23)
[2019-03-24] MEDS: Enoxaparin Sodium 40 MG/0.4 ML SYRINGE SC SCH (20:05)
[2019-03-24] MEDS: HumaLOG 300 UNITS/3 ML VIAL SC PRN (21:23)
[2019-03-25] MEDS: Acetaminophen 325 MG TAB PO SCH ×3 (06:09→18:03)
[2019-03-25] MEDS: Piperacillin/Tazobactam 3.375 GM in Sodium Chloride 0.9% 100 ML IVPB SCH (06:09)
[2019-03-25] MEDS: HYDROcodone/Acetaminophen 5/325 mg Tablet PO SCH ×3 (06:09→18:02)
[2019-03-25] MEDS: Ibuprofen 600 MG TAB PO SCH ×3 (06:09→21:58)
[2019-03-25] MEDS ORDERED: Sulfameth/Trimethoprim DS 800-160mg TAB PO SCH (09:00)
[2019-03-25 09:03] LABS: Vancomycin, Trough 12.6 ug/mL
[2019-03-25] MEDS: Senokot S 8.6-50 MG TAB PO SCH ×2 (09:48→19:51)
[2019-03-25] MEDS: Polyethylene Glycol 3350 17 GM Packet PO SCH (09:48)
[2019-03-25] MEDS: Sodium Chloride 0.9% 1,000 ML IV SCH (09:49)
[2019-03-25] MEDS ORDERED: Morphine 4 MG/ML VIAL ONE (10:19)
[2019-03-25] MEDS: Vancomycin HCl 1.5 GM in Sodium Chloride 0.9% 250 ML 300 ML IVPB SCH (12:23)
--- NOTE | 2019-03-25 16:44 | PRG ---
DATE OF SERVICE: 03/25/2019 SUBJECTIVE: This is a 64-year-old female with a history of diabetes, who came to the clinic with abdominal wound infection. The patient had an exploratory laparotomy on March 10. The patient was readmitted for abdominal washout and IV antibiotics. The patient is postop day #1 for incision and drainage of abdominal wound. The patient had no overnight events. The patient remains afebrile. The patient continues to get dressing changes twice a day. The patient given IV morphine for dressing change at the bedside by Dr. Hagen. Packing was removed from the midline incision, purulent drainage was noted, and wound culture was obtained. The patient was repacked with wet-to-dry dressing. OBJECTIVE: VITAL SIGNS: Temperature 98, pulse 80, respirations 12, SpO2 of 97% on room air, blood pressure 144/87. GENERAL: The patient is awake, alert, well-appearing, middle-aged female, lying in hospital bed, no acute distress. PULMONARY: Equal rise and fall of chest, no respiratory distress, breath sounds clear. CARDIAC: Regular rate and rhythm, no pedal edema. GASTROINTESTINAL: Abdomen is soft, mildly tender, midline abdominal incision with packing, mildly erythematous, purulent drainage. EXTREMITIES: 2+ pulses in all extremities. NEUROLOGIC: No focal deficits. LABORATORY DATA: There are no labs to evaluate today. DIAGNOSTIC FINDINGS: None. ASSESSMENT: 1. Postop day #15, status post laparoscopic appendectomy converted to exploratory laparotomy with adhesiolysis and appendectomy. 2. Midline abdominal wound infection. 3. Postop day #1 incision and drainage of abdominal wound infection. PLAN: Continue IV antibiotics. We will obtain wound culture. We will stop IV fluids. We will consult Wound Care to assist with dressing changes. Wound care to do daily wound changes with Dakin solution. We will place an order for PICC line placement as the patient is going to need several days of IV antibiotics. We will change the patient's Accu-Cheks to a.c. and hs. and continue mild sliding scale. Plan to keep the patient until Friday. Plan was discussed with the patient and family, who agrees. The patient was examined by Dr. Hagen this morning during rounds. Job ID: [id number]
--- NOTE | 2019-03-25 17:01 | SPC ---
Left upper extremity ultrasound guided and fluoroscopic guided PICC line placement: 03/25/2019 12:00 AM PROCEDURE: Peripherally placed 46 cm dual lumen PICC line. PICC Line Placement: The left arm was prepped and draped in sterile fashion. One percent lidocaine was used for local anesthetic. Under fluoroscopic and ultrasound guidance, the left basilic vein was patent and accessed with a micr opuncture needle. A guide wire was then advanced into the left basilic vein. A vascular sheath was then advanced over a guide wire, and a dual lumen PICC line was trimmed. The PICC line was then advanced into the central venous system. A final placement film demonstrates the tip of the catheter terminated in the caval-atrial junction. After confirmation of the catheter position, the catheter was sutured in place at the skin entry site . There was no immediate complication. Total fluoroscopic time 0.4 minutes. Total exposure 2087 mgray/sq cm IMPRESSION: Peripheral placement of a dual lumen power PICC line into the left basilic vein using fluoroscopic an d ultrasound guidance.
[2019-03-25] MEDS: Enoxaparin Sodium 40 MG/0.4 ML SYRINGE SC SCH (19:51)
[2019-03-25] MEDS: Morphine 2 MG/ML SYRINGE SLOW IVP PRN (21:57)
[2019-03-26] MEDS: HYDROcodone/Acetaminophen 5/325 mg Tablet PO SCH ×5 (00:32→23:18)
[2019-03-26] MEDS: Acetaminophen 325 MG TAB PO SCH ×5 (00:32→23:18)
[2019-03-26] MEDS: Vancomycin HCl 1.5 GM in Sodium Chloride 0.9% 250 ML 300 ML IVPB SCH ×3 (00:34→23:19)
[2019-03-26] MEDS: Ibuprofen 600 MG TAB PO SCH ×3 (05:27→22:00)
[2019-03-26 07:54] LABS: Hemoglobin 12.8 g/dL (12.0-16.0); Mean Corpuscular Volume 94.1 fL (78.0-98.0); Platelet Count 445 thou/uL (130-400); RBC Distribution Width 11.5 % (11.5-14.5); Red Blood Cell (RBC) Count 4.01 mill/uL (4.20-5.40); White Blood Cell (WBC) Count 6.8 thou/uL (4.8-10.8)
[2019-03-26 08:06] LABS: Anion Gap 14 mmol/L (10-20); BUN (Urea Nitrogen) Less than 4 mg/dL (9.8-20.1); Calc. Creatinine Clearance 122 mL/min (70-130); Calcium 9.6 mg/dL (7.8-10.44); Carbon Dioxide 29 mmol/L (23-31); Chloride 102 mmol/L (98-107); Estimated GFR-MDRD 89; Glucose 163 mg/dL (80-115); Magnesium 1.8 mg/dL (1.6-2.6); Phosphorus 3.1 mg/dL (2.3-4.7); Potassium 3.8 mmol/L (3.5-5.1); Sodium 141 mmol/L (136-145)
[2019-03-26 08:41] LABS: Band 3 % (5-11); Eosinophils 10 % (0-10); Lymphocytes 48 % (21-51); MDiff Complete? YES; Monocytes 5 % (0-10); Neutrophil 34 % (42-75); Platelet Morphology Comment Appears Increased; Polychromasia SLIGHT = 2-3 cells (100X) (0-2/hpf)
[2019-03-26] MEDS ORDERED: Potassium Phosphate 15 MMOL in Sodium Chloride 0.9% 250 ML 250 ML IVPB SCH (08:45)
[2019-03-26] MEDS ORDERED: Magnesium 2 GM/50 ML 2 GM in Premix Bag 1 BAG IVPB SCH (08:45)
[2019-03-26] MEDS ORDERED: Non-Formulary Item 1 EACH (Omeprazole Magnesium [Prilosec] 10 MG) PO SCH (09:00)
[2019-03-26] MEDS ORDERED: Non-Formulary Item 1 EACH (Venlafaxine Hcl [Venlafaxine Hcl Er] 150 MG) PO SCH (09:00)
[2019-03-26] MEDS: Morphine 2 MG/ML SYRINGE SLOW IVP PRN (09:45)
[2019-03-26] MEDS: Multivitamin W/ Minerals 1 TAB PO SCH (09:45)
[2019-03-26] MEDS: Loratadine 10 MG TAB PO SCH (09:46)
[2019-03-26] MEDS: Fish Oil 1,000 MG CAP PO SCH ×3 (09:46→22:00)
[2019-03-26] MEDS: Senokot S 8.6-50 MG TAB PO SCH ×2 (09:47→22:00)
[2019-03-26] MEDS: Polyethylene Glycol 3350 17 GM Packet PO SCH (09:47)
[2019-03-26] MEDS: Venlafaxine HCl XR 150 MG CAP PO SCH (09:53)
[2019-03-26] MEDS: Piperacillin/Tazobactam 3.375 GM in Sodium Chloride 0.9% 100 ML IVPB SCH ×3 (09:54→22:01)
[2019-03-26] MEDS ORDERED: Sodium Hypochlorite 0.25% Solution 480 ML BOT TOP SCH (10:00)
--- NOTE | 2019-03-26 11:31 | PRG ---
DATE OF SERVICE: SUBJECTIVE: Ms. Regan is a 64-year-old woman, who is postoperative day #2, status post incision and drainage of abdominal wound infection. She is awake and alert. She reports adequate pain control. Wound examination yesterday revealed some residual purulence and necrotic fascia. OBJECTIVE: VITAL SIGNS: This morning include blood pressure 172/91, pulse 62, respiratory rate is 16, temperature is 98.1 degrees Fahrenheit, oxygen saturation is 99% on room air. HEART: Reveals regular rate and rhythm. LUNGS: Clear to auscultation bilaterally. Breathing, regular and nonlabored. ABDOMEN: Soft and obese. Wound is inspected. At this time, there is residual necrosis but improved with regard to purulence. There is no odor to the wound. Wound was packed with sterile gauze impregnated with 0.25% Dakin solution. We will continue with local wound care for the next couple of days and consider wound VAC application if indicated. Job ID: [id number]
[2019-03-26 12:02] LABS: Vancomycin, Trough 17.3 ug/mL
[2019-03-26] MEDS: Enoxaparin Sodium 40 MG/0.4 ML SYRINGE SC SCH (22:00)
[2019-03-27] MEDS: Piperacillin/Tazobactam 3.375 GM in Sodium Chloride 0.9% 100 ML IVPB SCH ×4 (05:41→23:51)
[2019-03-27] MEDS: Ibuprofen 600 MG TAB PO SCH ×3 (05:41→21:35)
[2019-03-27] MEDS: HYDROcodone/Acetaminophen 5/325 mg Tablet PO SCH ×4 (05:41→23:51)
[2019-03-27] MEDS: Acetaminophen 325 MG TAB PO SCH ×4 (05:42→23:51)
[2019-03-27 06:31] LABS: Eosinophils 7 % (0-10); Hemoglobin 11.7 g/dL (12.0-16.0); Lymphocytes 33 % (21-51); MDiff Complete? YES; Mean Corpuscular HGB CONC 33.3 g/dL (32.0-36.0); Mean Corpuscular Hemoglobin 31.3 pg (27.0-31.0); Mean Corpuscular Volume 93.9 fL (78.0-98.0); Monocytes 10 % (0-10); Neutrophil 48 % (42-75); Platelet Count 418 thou/uL (130-400); Platelet Morphology Comment Appears Increased; RBC Distribution Width 11.6 % (11.5-14.5); Red Blood Cell (RBC) Count 3.73 mill/uL (4.20-5.40); White Blood Cell (WBC) Count 7.5 thou/uL (4.8-10.8)
[2019-03-27 06:36] LABS: Anion Gap 12 mmol/L (10-20); BUN (Urea Nitrogen) 11 mg/dL (9.8-20.1); Calc. Creatinine Clearance 98 mL/min (70-130); Calcium 9.4 mg/dL (7.8-10.44); Carbon Dioxide 29 mmol/L (23-31); Chloride 102 mmol/L (98-107); Estimated GFR-MDRD 68; Glucose 168 mg/dL (80-115); Magnesium 1.9 mg/dL (1.6-2.6); Phosphorus 3.7 mg/dL (2.3-4.7); Potassium 3.7 mmol/L (3.5-5.1); Sodium 139 mmol/L (136-145)
[2019-03-27] MEDS ORDERED: Potassium Phosphate 15 MMOL in Sodium Chloride 0.9% 250 ML 250 ML IVPB SCH (08:15)
[2019-03-27] MEDS: Fish Oil 1,000 MG CAP PO SCH ×3 (09:25→21:35)
[2019-03-27] MEDS: Lisinopril 10 MG TAB PO SCH (09:26)
[2019-03-27] MEDS: Loratadine 10 MG TAB PO SCH (09:26)
[2019-03-27] MEDS: Venlafaxine HCl XR 150 MG CAP PO SCH (09:27)
[2019-03-27] MEDS: Multivitamin W/ Minerals 1 TAB PO SCH (09:27)
[2019-03-27] MEDS: Sodium Hypochlorite 0.25% Solution 480 ML BOT TOP SCH (09:27)
[2019-03-27] MEDS: Senokot S 8.6-50 MG TAB PO SCH ×2 (09:28→21:35)
[2019-03-27] MEDS: Polyethylene Glycol 3350 17 GM Packet PO SCH (09:28)
[2019-03-27] MEDS: Vancomycin HCl 1.5 GM in Sodium Chloride 0.9% 250 ML 300 ML IVPB SCH (11:52)
--- NOTE | 2019-03-27 13:51 | PRG ---
DATE OF SERVICE: 03/27/2019 SUBJECTIVE: The patient now is postoperative day 3 for I and D of the midline abdominal wound. This morning, she said pain is well controlled. She slept very well overnight and has no complaints. She is tolerating regular diet, having regular bowel movements, ambulating without difficulty and voiding without difficulty. She denies nausea, vomiting, and diarrhea. The patient's nurse and wound care are changing the abdominal dressings, packing wet-to-dry b.i.d. OBJECTIVE: VITAL SIGNS: Temperature 98.2, pulse 73, respirations 18, oxygen saturation 92% on room air, and blood pressure 174/98. GENERAL: Well-appearing middle-aged female, lying in bed with no signs of acute distress. RESPIRATORY: Equal chest rise and fall. Clear breath sounds bilaterally. No signs of acute respiratory distress. CARDIAC: Regular rate and rhythm. No murmurs, gallops, or rubs. ABDOMEN: Soft, nontender, and nondistended with midline abdominal wound. Dressing clean, dry, and intact. There was some residual necrotic tissue, which Dr. Hagen removed at the bedside. There was no purulent discharge noted. No significant bleeding. LABORATORY FINDINGS: White count 7.5, hemoglobin 11.7, and hematocrit 35.0. Sodium 139, potassium 3.7, chloride 102, carbon dioxide 29, BUN 11, creatinine 0.84, glucose 168, phosphorus 3.7, and magnesium 1.9. DIAGNOSTIC FINDINGS: There are no new diagnostic findings to report. ASSESSMENT: 1. Midline abdominal surgical wound infection. 2. History of diabetes, hypertension, depression, obesity, arthritis, and diverticulosis. 3. Hypertension, uncontrolled. PLAN: The patient will continue b.i.d. wet-to-dry dressing changes with Dakin's solution to be completed by Wound Care and Nursing. Continue current pain and diet regimen. Follow up wound cultures as they were growing gram-negative rods. We will readjust antibiotics with further results. Replace potassium and phosphorus today. We will start lisinopril 10 mg daily for hypertension today. The patient in agreement with this. Continue dressing changes and will consider wound VAC placement as early as Friday. The patient was seen and examined by Dr. Hagen and myself this morning during rounds. Job ID: [id number] [facility]
[2019-03-27] MEDS ORDERED: diphenhydrAMINE 25 MG CAP PO SCH (18:45)
[2019-03-27] MEDS: Enoxaparin Sodium 40 MG/0.4 ML SYRINGE SC SCH (21:35)
[2019-03-28] MEDS: HYDROcodone/Acetaminophen 5/325 mg Tablet PO SCH ×4 (05:43→23:02)
[2019-03-28] MEDS: Acetaminophen 325 MG TAB PO SCH ×4 (05:43→23:02)
[2019-03-28] MEDS: Piperacillin/Tazobactam 3.375 GM in Sodium Chloride 0.9% 100 ML IVPB SCH ×4 (05:44→23:03)
[2019-03-28] MEDS: Ibuprofen 600 MG TAB PO SCH ×3 (05:44→21:31)
[2019-03-28 06:19] LABS: Anion Gap 12 mmol/L (10-20); BUN (Urea Nitrogen) 18 mg/dL (9.8-20.1); Calc. Creatinine Clearance 83 mL/min (70-130); Calcium 9.4 mg/dL (7.8-10.44); Carbon Dioxide 28 mmol/L (23-31); Chloride 102 mmol/L (98-107); Estimated GFR-MDRD 57; Glucose 184 mg/dL (80-115); Magnesium 1.8 mg/dL (1.6-2.6); Phosphorus 4.2 mg/dL (2.3-4.7); Sodium 138 mmol/L (136-145)
[2019-03-28] MEDS ORDERED: Magnesium 2 GM/50 ML 2 GM in Premix Bag 1 BAG IVPB SCH (08:15)
[2019-03-28] MEDS: Lisinopril 10 MG TAB PO SCH (08:45)
[2019-03-28] MEDS: Venlafaxine HCl XR 150 MG CAP PO SCH (08:45)
[2019-03-28] MEDS: Loratadine 10 MG TAB PO SCH (08:45)
[2019-03-28] MEDS: Multivitamin W/ Minerals 1 TAB PO SCH (08:45)
[2019-03-28] MEDS: Fish Oil 1,000 MG CAP PO SCH ×3 (08:45→21:28)
[2019-03-28] MEDS: Senokot S 8.6-50 MG TAB PO SCH ×2 (08:46→21:27)
[2019-03-28] MEDS: Polyethylene Glycol 3350 17 GM Packet PO SCH (08:46)
[2019-03-28] MEDS: Sodium Hypochlorite 0.25% Solution 480 ML BOT TOP SCH (08:58)
[2019-03-28 09:00] LABS: Band 4 % (5-11); Eosinophils 8 % (0-10); Hemoglobin 11.3 g/dL (12.0-16.0); Lymphocytes 37 % (21-51); MDiff Complete? YES; Mean Corpuscular HGB CONC 33.4 g/dL (32.0-36.0); Mean Corpuscular Hemoglobin 31.4 pg (27.0-31.0); Mean Corpuscular Volume 94.2 fL (78.0-98.0); Monocytes 8 % (0-10); Neutrophil 42 % (42-75); Platelet Count 361 thou/uL (130-400); RBC Distribution Width 11.8 % (11.5-14.5); Vacuoles SLIGHT; White Blood Cell (WBC) Count 7.6 thou/uL (4.8-10.8)
--- NOTE | 2019-03-28 15:43 | PRG ---
DATE OF SERVICE: 03/28/2019 SUBJECTIVE: The patient was seen this morning, lying in bed with no signs of acute distress. She said she slept well overnight and is tolerating a regular diet. Pain is well controlled. She is having b.i.d. dressing changes to her midline abdominal wound. She denies nausea, vomiting, and diarrhea, is having bowel movements as well. OBJECTIVE: VITAL SIGNS: Temperature 98 degrees, pulse 77, respirations 16, oxygen saturation 96% on room air, and blood pressure 138/83. GENERAL: Well-appearing middle-aged female, lying in bed with no signs of acute distress. RESPIRATORY: Equal chest rise and fall. Clear breath sounds bilaterally. No signs of acute respiratory distress. CARDIAC: Regular rate and rhythm. No murmurs, gallops, or rubs. GASTROINTESTINAL: Abdomen is soft, nontender, and nondistended. Midline wound with dressing intact. Wound Care completing dressing change, which demonstrated mostly pink red granulation tissue. There is no purulent discharge. There is no significant bleeding. No sign of any necrotic tissue. LABORATORY FINDINGS: White count 7.6, hemoglobin 11.3, hematocrit 33.9, and platelets 136. Sodium 138, potassium 4.0, chloride 102, carbon dioxide 28, BUN 18, creatinine 0.99, glucose 184, phosphorus 4.2, and magnesium 1.8. DIAGNOSTIC FINDINGS: There are no new diagnostic findings to report. ASSESSMENT: 1. Midline abdominal surgical wound infection, status post I and D. 2. History of diabetes, hypertension, depression, obesity, arthritis, and diverticulitis. 3. Hypertension, controlled. PLAN: We will continue with b.i.d. dressing changes and Dakin's solution completed by Wound Care nursing. Continue pain and diet regimen. Continue current antihypertensive medication, which seems to be much better controlling her high blood pressure. Continue with IV Zosyn as culture has grown back E coli sensitive to Zosyn. Continue to work with physical therapy and ambulate regularly. We will re-evaluate for consideration of VAC placement tomorrow. The patient was discussed with Dr. Hagen this morning after rounds. Job ID: [id number] [facility]
[2019-03-28] MEDS: Enoxaparin Sodium 40 MG/0.4 ML SYRINGE SC SCH (21:28)
[2019-03-29 05:04] LABS: Anion Gap 12 mmol/L (10-20); BUN (Urea Nitrogen) 15 mg/dL (9.8-20.1); Calc. Creatinine Clearance 72 mL/min (70-130); Calcium 9.4 mg/dL (7.8-10.44); Carbon Dioxide 28 mmol/L (23-31); Chloride 104 mmol/L (98-107); Estimated GFR-MDRD 48; Glucose 184 mg/dL (80-115); Magnesium 1.9 mg/dL (1.6-2.6); Phosphorus 4.6 mg/dL (2.3-4.7); Sodium 140 mmol/L (136-145)
[2019-03-29 05:10] LABS: Band 2 % (5-11); Eosinophils 5 % (0-10); Hemoglobin 11.3 g/dL (12.0-16.0); Lymphocytes 34 % (21-51); MDiff Complete? YES; Mean Corpuscular HGB CONC 33.3 g/dL (32.0-36.0); Mean Corpuscular Hemoglobin 31.4 pg (27.0-31.0); Mean Corpuscular Volume 94.2 fL (78.0-98.0); Mean Platelet Volume 5.9 fL (7.4-10.4); Monocytes 7 % (0-10); Neutrophil 52 % (42-75); Platelet Count 410 thou/uL (130-400); RBC Distribution Width 11.8 % (11.5-14.5); Red Blood Cell (RBC) Count 3.59 mill/uL (4.20-5.40); White Blood Cell (WBC) Count 8.2 thou/uL (4.8-10.8)
[2019-03-29] MEDS: Piperacillin/Tazobactam 3.375 GM in Sodium Chloride 0.9% 100 ML IVPB SCH ×4 (06:00→22:05)
[2019-03-29] MEDS: Acetaminophen 325 MG TAB PO SCH ×4 (06:25→23:16)
[2019-03-29] MEDS: Ibuprofen 600 MG TAB PO SCH ×3 (06:25→21:50)
[2019-03-29] MEDS: HYDROcodone/Acetaminophen 5/325 mg Tablet PO SCH ×4 (06:26→23:16)
[2019-03-29] MEDS: Loratadine 10 MG TAB PO SCH (08:09)
[2019-03-29] MEDS: Venlafaxine HCl XR 150 MG CAP PO SCH (08:10)
[2019-03-29] MEDS: Fish Oil 1,000 MG CAP PO SCH ×3 (08:10→21:49)
[2019-03-29] MEDS: Multivitamin W/ Minerals 1 TAB PO SCH (08:11)
[2019-03-29] MEDS: Lisinopril 10 MG TAB PO SCH (08:11)
[2019-03-29] MEDS: Senokot S 8.6-50 MG TAB PO SCH ×2 (08:11→21:49)
[2019-03-29] MEDS: Polyethylene Glycol 3350 17 GM Packet PO SCH (08:13)
[2019-03-29] MEDS: Sodium Hypochlorite 0.25% Solution 480 ML BOT TOP SCH (09:54)
[2019-03-29] MEDS: HumaLOG 300 UNITS/3 ML VIAL SC PRN ×2 (11:51→21:52)
[2019-03-29] MEDS: Enoxaparin Sodium 40 MG/0.4 ML SYRINGE SC SCH (21:48)
[2019-03-29] MEDS: Meropenem 500 MG in Sodium Chloride 0.9% 100 ML IVPB SCH (22:21)
[2019-03-30] MEDS: Acetaminophen 325 MG TAB PO SCH ×3 (05:58→17:27)
[2019-03-30] MEDS: Ibuprofen 600 MG TAB PO SCH ×3 (05:58→21:15)
[2019-03-30] MEDS: HYDROcodone/Acetaminophen 5/325 mg Tablet PO SCH ×3 (05:59→17:27)
[2019-03-30] MEDS: HumaLOG 300 UNITS/3 ML VIAL SC PRN ×3 (06:04→18:19)
[2019-03-30] MEDS: Meropenem 500 MG in Sodium Chloride 0.9% 100 ML IVPB SCH ×3 (06:11→21:16)
[2019-03-30] MEDS: Polyethylene Glycol 3350 17 GM Packet PO SCH (09:47)
[2019-03-30] MEDS: Venlafaxine HCl XR 150 MG CAP PO SCH (09:47)
[2019-03-30] MEDS: Fish Oil 1,000 MG CAP PO SCH ×3 (09:47→21:15)
[2019-03-30] MEDS: Multivitamin W/ Minerals 1 TAB PO SCH (09:48)
[2019-03-30] MEDS: Senokot S 8.6-50 MG TAB PO SCH ×2 (09:49→21:15)
[2019-03-30] MEDS: Loratadine 10 MG TAB PO SCH (09:49)
[2019-03-30] MEDS: Morphine 2 MG/ML SYRINGE SLOW IVP PRN (09:54)
[2019-03-30] MEDS: Lisinopril 20 MG TAB PO SCH (09:55)
[2019-03-30] MEDS: Sodium Hypochlorite 0.25% Solution 480 ML BOT TOP SCH (09:58)
--- NOTE | 2019-03-30 15:50 | PRG ---
DATE OF SERVICE: 03/30/2019 Ms. Regan is a 64-year-old woman, status post open cholecystectomy. The patient developed a postoperative wound infection, which requires local wound care. This morning, the wound is inspected. There is better granulation tissue. No significant gross purulence present. Abdominal examination is otherwise unremarkable as the patient is tolerating diet and having normal bowel and urinary function. Wound VAC was applied. Job ID: [id number]
[2019-03-30] MEDS: Enoxaparin Sodium 40 MG/0.4 ML SYRINGE SC SCH (21:14)
[2019-03-31] MEDS: HYDROcodone/Acetaminophen 5/325 mg Tablet PO SCH ×3 (00:37→12:27)
[2019-03-31] MEDS: Acetaminophen 325 MG TAB PO SCH ×3 (00:37→12:27)
[2019-03-31] MEDS: Ibuprofen 600 MG TAB PO SCH ×2 (05:45→13:51)
[2019-03-31] MEDS: Meropenem 500 MG in Sodium Chloride 0.9% 100 ML IVPB SCH ×3 (05:46→13:54)
[2019-03-31] MEDS: HumaLOG 300 UNITS/3 ML VIAL SC PRN ×2 (06:36→14:06)
[2019-03-31] MEDS: Fish Oil 1,000 MG CAP PO SCH ×2 (09:25→14:53)
[2019-03-31] MEDS: Venlafaxine HCl XR 150 MG CAP PO SCH (09:25)
[2019-03-31] MEDS: Multivitamin W/ Minerals 1 TAB PO SCH (09:26)
[2019-03-31] MEDS: Lisinopril 20 MG TAB PO SCH (09:26)
[2019-03-31] MEDS: Loratadine 10 MG TAB PO SCH (09:27)
[2019-03-31] MEDS: Senokot S 8.6-50 MG TAB PO SCH (09:28)
[2019-03-31] MEDS: Polyethylene Glycol 3350 17 GM Packet PO SCH (09:28)
[2019-03-31] MEDS: Sodium Hypochlorite 0.25% Solution 480 ML BOT TOP SCH (09:29)
[2019-03-31 16:41] VITALS: TEMP 98.1
[2019-03-31 21:07] VITALS: BP 165/89
--- NOTE | 2019-04-01 03:04 | DIS ---
DATE OF ADMISSION: 03/25/2019 DATE OF DISCHARGE: 03/31/2019 This is Bj Ivory PA-C dictating a report for Conrad Hagen DO. ATTENDING PHYSICIAN: Conrad Hagen DO DISCHARGING PHYSICIAN: Conrad Hagen DO PROCEDURES THIS ADMISSION: 1. I and D of abdominal wound on 03/24/2019, under general anesthesia. 2. Wound VAC placement. ADMITTING DIAGNOSES: 1. Midline abdominal wound infection status post open appendectomy. 2. Postoperative day #13, status post open appendectomy. DISCHARGING DIAGNOSES: 1. Midline abdominal wound infection. 2. Wound beginning to heal secondary intention via wound VAC. HOSPITAL COURSE: Ms. Regan is a 64-year-old female, history of diabetes and obesity, who first had ex-lap on March 10 for appendicitis, initially was laparoscopic, had multiple adhesions, had to be converted to an open procedure. She had a primary closure, started having some drainage from the wound, and actually on the date of discharge to the hospital got progressively worse and presented postop day #13 back here for evaluation in the Trauma Clinic. The patient was immediately admitted to the hospital under Dr. Hagen's service and taken to the operating theater. Fascia was nearly gone secondary to infection. She was placed on antibiotics and I and D of the wound, open left for secondary intention. Over the course of the hospitalization, the patient continued to improve. She did have some necrotic fascia that was excised as needed on daily wound checks. Wound care was following. Wound has been packed with 0.25% of Dakin solution until the wound VAC was placed. On the date of discharge, her wound VAC is in place. The patient will follow up with Wound Clinic in 48 hours. The patient is tolerating a diet. Feeling well, hemodynamically stable, and is amenable for discharge. She will follow up with trauma services on the 20 of April at 0215 in the afternoon. She will go to the clinic on 04/02/2019 for wound care. The patient was started on Merrem while she was here. She got 24 hours of meropenem and is started on, 1. Metronidazole for outpatient 500 mg t.i.d. 2. Aspirin 81 mg daily. 3. Tylenol 650 mg every six. 4. Ibuprofen 600 mg every eight. 5. [place] 5/325 as needed. 6. Venlafaxine 150 mg daily. PHYSICAL EXAMINATION: On the date of discharge; VITAL SIGNS: Temperature is 98.1, blood pressure 165/96, heart rate is 88, breathing 12 times a minute, saturating 98% on room air. GENERAL: Obese female, sitting up in bed, in no acute distress. HEENT: Normocephalic, atraumatic. RESPIRATORY: Equal rise and fall. CARDIOVASCULAR: Regular rate and rhythm. ABDOMEN: Has open abdominal wound. Wound VAC is in place. She has had dressing changes, tolerating well. PELVIS: Stable. MUSCULOSKELETAL: Moves extremities. PSYCH: Normal mood and affect. NEUROLOGIC: Alert and oriented to person, place, time, and event. LABORATORY DATA: From today, blood glucose 959. Followup will be Trauma service on April 20, Wound Care on 04/02, and her PCP as needed for hypertension. The patient was given strict return precautions. The patient was seen by Dr. Conrad Hagen today. Greater than 30 minutes was taken in discharge planning this patient. Job ID: [id number]
== END 2019-03-31 17:01 | disposition home or self-care (01) | DRG 857 ==
LOC: SJJU 16:20 → OBSVTOIN 03-25 11:22
PROVIDERS: ADMIT Surgery; ATTEND Surgery
PROC: 0J980ZZ Drainage of Abdomen Subcutaneous Tissue and Fascia, Open Approach (ICD-10-PCS; principal; 2019-03-25)
PROC: 02HV33Z Insertion of Infusion Device into Superior Vena Cava, Percutaneous Approach (ICD-10-PCS; 2019-03-25)
PROC: B518YZA Fluoroscopy of Superior Vena Cava using Other Contrast, Guidance (ICD-10-PCS; 2019-03-25)
DX: T81.41XA Infection following a procedure, superficial incisional surgical site, initial encounter (principal); I96 Gangrene, not elsewhere classified; F32.9 Major depressive disorder, single episode, unspecified; E66.01 Morbid (severe) obesity due to excess calories; E11.9 Type 2 diabetes mellitus without complications; I10 Essential (primary) hypertension; M19.90 Unspecified osteoarthritis, unspecified site; B96.20 Unspecified Escherichia coli [E. coli] as the cause of diseases classified elsewhere; Z16.29 Resistance to other single specified antibiotic; Z91.19 Patient's noncompliance with other medical treatment and regimen; Z79.82 Long term (current) use of aspirin; Z79.899 Other long term (current) drug therapy; Z68.36 Body mass index [BMI] 36.0-36.9, adult
CPT/HCPCS: 36415; 36416; 36569; 80048; 80202; 83735; 84100; 85007; 85027; 87070; 87077; 87186; 87205; J0360; J1642; J1644; J1650; J2001; J2185; J2270; J2543; J2704; J3010; J3370; J3475; J3490; J7050; Q0163; S0028

== ENCOUNTER 2019-04-01 11:43 | Outpatient (CLI) | payer OTHER ==
[~2019-04-01 11:43] MED LIST changes: -Heparin 1,000 UNITS/ML VIAL ONE; +Sodium Chloride 0.9% 15 ML NEB ONE
== END 2019-04-01 11:44 | disposition home or self-care (01) ==
LOC: WCC 11:43
PROVIDERS: ATTEND Family Medicine
DX: S31.109D Unspecified open wound of abdominal wall, unspecified quadrant without penetration into peritoneal cavity, subsequent encounter (principal)
CPT/HCPCS: 97605; A4218

== ENCOUNTER 2019-04-05 14:30 | Outpatient (CLI) | payer OTHER | END 2019-04-05 14:31 | disposition home or self-care (01) | LOC: WCC 14:30 | PROVIDERS: ATTEND Family Medicine | DX: T81.89XD Other complications of procedures, not elsewhere classified, subsequent encounter (principal) | CPT/HCPCS: 97606; A4218 ==

== ENCOUNTER 2019-04-07 12:54 | Outpatient (CLI) | payer OTHER ==
[2019-04-07] MEDS ORDERED: Sodium Chloride 0.9% 15 ML NEB ONE (15:00)
== END 2019-04-07 12:55 | disposition home or self-care (01) ==
LOC: WCC 12:54
PROVIDERS: ATTEND Family Medicine
DX: T81.89XD Other complications of procedures, not elsewhere classified, subsequent encounter (principal)
CPT/HCPCS: 97606; A4218

== ENCOUNTER 2019-04-09 13:20 | Outpatient (CLI) | payer OTHER ==
[2019-04-09] MEDS ORDERED: Sodium Chloride 0.9% 15 ML NEB ONE (15:00)
== END 2019-04-09 13:21 | disposition home or self-care (01) ==
LOC: WCC 13:20
PROVIDERS: ATTEND Family Medicine
DX: T81.89XD Other complications of procedures, not elsewhere classified, subsequent encounter (principal)
CPT/HCPCS: 97605; A4218

== ENCOUNTER 2019-04-12 14:11 | Outpatient (CLI) | payer OTHER ==
[2019-04-12] MEDS ORDERED: Sodium Chloride 0.9% 15 ML NEB ONE (18:00)
[2019-04-12] MEDS ORDERED: Lidocaine 2% PF 100 mg/5 ml Syringe ONE (18:00)
--- NOTE | 2019-04-13 00:20 | HP ---
HISTORY OF PRESENT ILLNESS: Ms. Marly Regan is a very pleasant 64-year-old, who presents to the Wound Center for evaluation of a midline abdominal wound subsequent to incision and drainage of an abdominal wound on 03/24/[address] Hagen. Previously, the patient had undergone appendectomy on 03/10/[address] Hagen. Laparoscopic appendectomy was attempted initially, however, the patient required exploratory laparotomy including adhesiolysis. Subsequent to surgery on 03/24/2019, negative pressure therapy was initiated, and upon discharge from [facility], the patient was referred to the Wound Center for assistance with dressing changes of the wound VAC. PAST MEDICAL HISTORY: 1. Diabetes mellitus. 2. Diverticulosis. PAST SURGICAL HISTORY: 1. Left colectomy. 2. Incisional hernia repair with mesh. 3. Left total hip arthroplasty. 4. Back surgery. 5. Appendectomy on 03/10/[address] Hagen. 6. Incision and drainage of abdominal wound on 03/24/[address] Hagen. MEDICATIONS: 1. Effexor. 2. Multivitamin. 3. Aspirin 81 mg. 4. Fish oil. 5. Prilosec. 6. Vitamin C. ALLERGIES: ADHESIVE. SOCIAL HISTORY: Social history is significant for tobacco use of 1/2 pack of cigarettes per day for 3 years in the past. The patient admits to only the occasional consumption of alcohol. FAMILY HISTORY: Family history is negative for diabetes mellitus or coronary artery disease. PHYSICAL EXAMINATION: VITAL SIGNS: Temperature 97.6, pulse 110, respirations 18, blood pressure 145/78. Accu-Chek 294. GENERAL: A 64-year-old female, sitting on chair in examination room, in no acute distress. HEENT: Normocephalic, atraumatic. NECK: No nuchal rigidity. CHEST: Clear to auscultation. CV: Regular rate and rhythm. ABDOMEN: Soft. A wound of the abdomen in the midline is present, which measures approximately 10.5 x 3.0 cm. Granulation tissue is present within the wound margins. No purulent drainage is associated with the wound. No erythema of the skin surrounding the wound is present. No maceration of the skin of the periwound is noted. EXTREMITIES: No clubbing or cyanosis. NEURO: Grossly nonfocal. ASSESSMENT AND PLAN: 1. Midline abdominal wound as described above. Negative pressure therapy will be continued with dressing changes of the wound VAC here in the Wound Center. The patient will be seen by Dr. Hagen in 1 week. I will see Ms. Regan again in 2 weeks. No antibiotics will be prescribed today based upon the appearance of the wound. The patient understands and is in agreement with the preceding treatment plan. 2. Diabetes mellitus. The patient's Accu-Chek in clinic today is 294. The patient has been told that for optimal wound healing, her blood glucoses should remain below 150. 3. Diverticulosis. The patient is status post left colectomy. Job ID: [id number]
== END 2019-04-12 14:12 | disposition home or self-care (01) ==
LOC: WCC 14:11
PROVIDERS: ATTEND Family Medicine
DX: T81.89XD Other complications of procedures, not elsewhere classified, subsequent encounter (principal); E11.9 Type 2 diabetes mellitus without complications; K57.90 Diverticulosis of intestine, part unspecified, without perforation or abscess without bleeding; Z90.49 Acquired absence of other specified parts of digestive tract
CPT/HCPCS: 36416; A4218; J2001

== ENCOUNTER 2019-04-15 13:41 | Outpatient (CLI) | payer OTHER ==
[~2019-04-15 13:41] MED LIST changes: +Lidocaine 2% 11 ML SYR ONE
== END 2019-04-15 13:42 | disposition home or self-care (01) ==
LOC: WCC 13:41
PROVIDERS: ATTEND Family Medicine
DX: T81.89XD Other complications of procedures, not elsewhere classified, subsequent encounter (principal)
CPT/HCPCS: 97605; A4218

== ENCOUNTER 2019-04-20 14:59 | Outpatient (CLI) | payer OTHER ==
[2019-04-20] MEDS ORDERED: Sodium Chloride 0.9% 15 ML NEB ONE (15:00)
== END 2019-04-20 15:00 | disposition home or self-care (01) ==
LOC: WCC 14:59
PROVIDERS: ATTEND Family Medicine
DX: T81.89XD Other complications of procedures, not elsewhere classified, subsequent encounter (principal)
CPT/HCPCS: 97605; A4218

== ENCOUNTER 2019-04-23 11:32 | Outpatient (CLI) | payer OTHER ==
[2019-04-23] MEDS ORDERED: Sodium Chloride 0.9% 15 ML NEB ONE (15:00)
== END 2019-04-23 11:33 | disposition home or self-care (01) ==
LOC: WCC 11:32
PROVIDERS: ATTEND Family Medicine
DX: T81.89XD Other complications of procedures, not elsewhere classified, subsequent encounter (principal)
CPT/HCPCS: A4218

== ENCOUNTER 2019-04-27 13:29 | Outpatient (CLI) | payer OTHER | END 2019-04-27 13:30 | disposition home or self-care (01) | LOC: WCC 13:29 | PROVIDERS: ATTEND Family Medicine | DX: T81.89XD Other complications of procedures, not elsewhere classified, subsequent encounter (principal) | CPT/HCPCS: 97605; A4218 ==

== ENCOUNTER 2019-11-01 14:51 | Outpatient (CLI) | payer OTHER ==
--- NOTE | 2019-11-01 15:39 | CT ---
CT Abdomen Pelvis WO Con: 11/01/2019 12:00 AM HISTORY: Incisional hernia COMPARISON: None. TECHNIQUE: Multiple contiguous axial images were obtained and a CT of the abdomen and pelvis without IV contrast . Coronal and sagittal reformats were performed. FINDINGS: This examination is limited for the evaluation of solid organs and vascular structures due to the lac k of intravenous contrast. Lower Chest: within normal limits. Abdomen: Liver: within normal limits. Bile Ducts: Normal caliber. Gallbladder: Dependent gallstones are seen in the gallbladder. Pancreas: within normal limits. Spleen: within normal limits. Adrenals: within normal limits. Kidneys: within normal limits. Pelvis: Reproductive Organs: No pelvic masses. Ureters: within normal limits. Bladder: within normal limits. Bowel: Normal caliber. Anastomotic staple line in the sigmoid colon. Mesenteric Lymph Nodes: No enlarged mesenteric lymph nodes. Peritoneum: No ascites or free air, no fluid collection. Vessels: Normal caliber aorta Retroperitoneum: within normal limits. Abdominal Wall: There is eventration of the lower abdominal wall containing small bowel. This is very large measuring 10.2 cm in length and 11.9 cm in width. The overlying fascia appears intact except for along the anterior left aspect near the umbilicus. An adjacent nodule is seen measuring 2.1 cm in size. Bones: Hardware seen in the lumbar spine and left hip. Degenerative changes are seen in the spine. IMPRESSION: 1. Weakening of the anterior abdominal wall with eventration and/or hernia. 2. Cholelithiasis
== END 2019-11-01 14:52 | disposition home or self-care (01) ==
LOC: CT 14:51
PROVIDERS: ATTEND Family Medicine
DX: K43.2 Incisional hernia without obstruction or gangrene (principal); K80.20 Calculus of gallbladder without cholecystitis without obstruction
CPT/HCPCS: 74176; 80053; 80061; 82043; 83036; 84439; 84443